=== PATIENT | female | born 1990 | race Caucasian/White ===

== ENCOUNTER 2016-07-26 17:57 | Emergency (ER) | payer OTHER ==
[~2016-07-26] VITALS: Wt 121.5 kg
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
--- NOTE | 2016-07-26 22:10 | RADRPT ---
PROCEDURE: XR left Shoulder. CLINICAL INDICATION: Trauma. Pain. TECHNIQUE: Three views of the left shoulder are available for review. COMPARISON: None available FINDINGS: No acute fracture or dislocation is seen. The glenohumeral joint is unremarkable. The acromioclavi cular joint is intact. The visualized portions of the left clavicle and upper left rib cage are unr emarkable. No radiopaque foreign body is identified. Bone mineralization is within normal limits. Soft tissues are unremarkable. IMPRESSION: 1. Unremarkable left shoulder x-ray series. 2. No acute fracture or dislocation is seen. RPTAT: HMVK .Kit Mccloud MD, Date Time Electronically viewed and signed by .Kit Mccloud MD, MD on 07/26/2016 22:10 .K/
--- NOTE | 2016-07-26 22:11 | RADRPT ---
PROCEDURE: Thoracic Spine. CLINICAL INDICATION: Pain TECHNIQUE: Three views of the thoracic spine are available for review. COMPARISON: None available FINDINGS: No fracture is identified. There is maintenance of height of the vertebral bodies. Alignment is m aintained. There is no spondylolisthesis. Bone mineralization is within normal limits. Soft tissu es are unremarkable. IMPRESSION: 1. No acute abnormality. RPTAT: HMVK .Kit Mccloud MD, MD Date Time Electronically viewed and signed by .Kit Mccloud MD, on 07/26/2016 22:11 .K/
[2016-07-26] MEDS ORDERED: IBUP-1542 PO (22:21)
[2016-07-26] MEDS ORDERED: CYCL5TAB PO (22:21)
[2016-07-26] MEDS ORDERED: HYDROCODONE/APAP (5/325) TAB PO ONE (22:30)
[2016-07-26 23:04] VITALS: BP 128/77; PULSE 69; RESP 18; TEMP 97.3
== END 2016-07-26 23:04 | disposition home or self-care (01) ==
LOC: FTE 17:57
DX: S43.402A Unspecified sprain of left shoulder joint, initial encounter (principal); S29.012A Strain of muscle and tendon of back wall of thorax, initial encounter; V49.40XA Driver injured in collision with unspecified motor vehicles in traffic accident, initial encounter
CPT/HCPCS: 72072; 73030; Z7502; Z7610

== ENCOUNTER 2016-09-24 01:52 | Inpatient (IN) | payer OTHER ==
[~2016-09-24] VITALS: Ht 167.6 cm; Wt 118.0 kg
[2016-09-24] VITALS (7 sets, daily range): BP systolic 105–113; BP diastolic 54–63; PULSE 78–90; RESP 18; TEMP 98.1; Ht 167.6 cm; Wt 118.0 kg
[~2016-09-24 01:52] MED LIST: CYCL5TAB PO; IBUP-1542 PO
[2016-09-24] MEDS ORDERED: SOD CHLORIDE 0.9% 1,000 ML IV STA (03:37)
[2016-09-24 04:18] LABS: ADD SCAN DIFF NO
[2016-09-24 04:33] LABS: ALBUMIN 3.6 g/dl (3.3-4.9)
[2016-09-24 04:34] LABS: POTASSIUM 3.4 mmol/L (3.5-5.1)
[2016-09-24 04:36] LABS: ALBUMIN/GLOBULIN RATIO 1.12; CREATININE 0.67 mg/dl (0.44-1.00); TOTAL PROTEIN 6.8 g/dl (6.1-8.1)
[2016-09-24 04:37] LABS: CALCIUM 8.3 mg/dl (8.4-10.2)
[2016-09-24 04:48] LABS: ABNORMAL IP MESSAGE 1; BASOPHILS % 0.4 % (0.0-2.0); EOSINOPHILS # 0.2 10^3/ul (0.0-0.5); EOSINOPHILS % 1.7 % (0.0-7.0); HEMATOCRIT 26.7 % (37.0-47.0); HEMOGLOBIN 7.7 g/dl (12.0-16.0); LYMPHOCYTES # 2.2 10^3/ul (0.8-2.9); LYMPHOCYTES % 24.4 % (15.0-51.0); MEAN CORPUSCULAR HEMOGLOBIN 22.4 pg (29.0-33.0); MEAN CORPUSCULAR HGB CONC 28.8 g/dl (32.0-37.0); MEAN CORPUSCULAR VOLUME 77.8 fl (82.0-101.0); MEAN PLATELET VOLUME 10.1 fl (7.4-10.4); MONOCYTE # 0.5 10^3/ul (0.3-0.9); NEUTROPHILS % 66.9 % (39.0-77.0); PLATELET COUNT 418 10^3/UL (140-415); RED BLOOD COUNT 3.43 10^6/ul (4.20-5.40); RED CELL DISTRIBUTION WIDTH 16.4 % (11.5-14.5)
[2016-09-24 05:21] LABS: ADD UMIC YES; URINE BILIRUBIN (Dip) NEGATIVE (NEGATIVE); URINE BLOOD (Dip) 3+ (NEGATIVE); URINE COLOR RED (YELLOW); URINE GLUCOSE (Dip) NEGATIVE (NEGATIVE); URINE KETONES (Dip) NEGATIVE (NEGATIVE); URINE LEUKOCYTE ESTERASE (Dip) NEGATIVE (NEGATIVE); URINE NITRITE (Dip) NEGATIVE (NEGATIVE); URINE TOTAL PROTEIN (Dip) 2+ (NEGATIVE); URINE UROBILINOGEN (Dip) 0.2 E.U./dL (0.1-1.0)
--- NOTE | 2016-09-24 05:24 | RADRPT ---
PROCEDURE: US OB. CLINICAL INDICATION: Vaginal bleeding in . TECHNIQUE: Transabdominal imaging of the uterus is available for review COMPARISON: None available FINDINGS: No intrauterine is identified. The uterus is enlarged and heterogeneous measuring 14.1 x 14.2 x 8.9 cm. There is a large fundal fibroid measuring 9 cm in diameter. The right ovary measures 3.4 x 2.4 x 3.2 cm and the left ovary measures 3.5 x 2.1 x 2.7 cm. No adnexal mass is identified. Small free fluid is noted within the pelvis. IMPRESSION: Evaluation is limited secondary to large uterine fibroids measuring up to 9 cm in diameter. No intr auterine identified. There are no adnexal masses. Endovaginal ultrasound would be useful for further evaluation. Correlation with serial beta HCGs and repeat pelvic ultrasound as clinicall y indicated, is recommended, as ectopic is not excluded on this examination. RPTAT: HH .Cary Peng MD, MD Date Time Electronically viewed and signed by .Cary Peng MD, on 09/24/2016 05:24 .G/
[2016-09-24 05:50] LABS: MUCUS,URINE MODERATE; SQUAMOUS EPITHELIAL CELL,UR FEW; URINE RBCS >200 /HPF (0)
--- NOTE | 2016-09-24 05:52 | ERA ---
ER Documentation Chief Complaint Date/Time DATE: 09/24/16 TIME: 05:46 Chief Complaint Vaginal bleed X2 days Heavy per pt. Sx Fibroids Removal HPI 26-year-old woman presents with 2 syncopal episodes and recent dizziness. She began having vaginal bleeding about a week ago but 2 days ago became very heavy she is used multiple pads per day. She had one syncopal episode outside while in the emergency department waiting room. She denies head or neck injury, no fevers or chills, no vomiting or diarrhea, no headache or blurry vision. Patient does have a history of uterine fibroids although denies previous heavy bleeding. She has had one miscarriage. ROS All systems reviewed and are negative except as per history of present illness. Medications Home Meds Active Scripts Cyclobenzaprine Hcl* (Cyclobenzaprine Hcl*) 5 Mg Tablet, 5 MG PO Q8H Y for PAIN , #15 TAB Prov:SHAYNE MARIA PA-C 07/26/16 Ibuprofen* (Motrin*) 600 Mg Tab, 600 MG PO Q6, #30 TAB Prov:SHAYNE MARIA PA-C 07/26/16 Allergies Allergies: Coded Allergies: No Known Allergy (Unverified , 07/26/16) PMhx/Soc Obesity, uterine fibroids, possible PCOS History of Surgery: No Anesthesia Reaction: No Hx Neurological Disorder: No Hx Respiratory Disorders: No Hx Cardiac Disorders: No Hx Psychiatric Problems: No Hx Miscellaneous Medical Probl: Yes (FIBROIDS , OVARIAN CYST REMOVAL) Hx Alcohol Use: No Hx Substance Use: No Hx Tobacco Use: No Smoking Status: Never smoker FmHx Family History: No diabetes Physical Exam Vitals Vital Signs Date Time Temp Pulse Resp B/P Pulse Ox O2 Delivery O2 Flow Rate FiO2 09/24/16 02:51 97.7 108 18 127/71 100 Physical Exam GENERAL: Well-developed, well-nourished, appears dehydrated HEENT: Pale conjunctiva, no cervical spine tenderness or step-off deformities, no goiter, no jaundice or icterus, extraocular movements intact without pain. No submandibular induration, and no pharyngeal erythema NEURO: Alert and oriented 3, cranial nerves II through XII intact bilaterally, pupils equal round reactive to light, no focal deficits or facial asymmetry, sensation intact distally Strength 5/5 in upper and lower extremities bilaterally CARDIAC: Tachycardic and regular, no murmurs rubs or gallops LUNGS: Clear bilaterally no wheezing crackles or stridor ABDOMEN: Soft nontender, no guarding, no rigidity, no rebound, no psoas sign no obturator sign. Normoactive bowel sounds SKIN: Warm and dry to touch, no abrasions, contusions, or hematomas, no lacerations, no ecchymosis, no target lesions, and without ulcers EXTREMITIES: No clubbing cyanosis or edema, calves are bilaterally symmetrical, no Homans sign, no popliteal cord sign. Distal pulses equal and bilateral PSYCH: Normal affect without agitation or irritability Result Diagram: 09/24/1635609/24/167 Results 24 hrs Laboratory Tests Test 09/24/16 03:57 Alanine Aminotransferase (ALT/SGPT) 26IU/L Albumin 3.6g/dl Albumin/Globulin Ratio 1.12 Alkaline Phosphatase 83IU/L Anion Gap 15 Aspartate Amino Transf (AST/SGOT) 16IU/L Basophils # 0.010^3/ul Basophils % 0.4% Beta HCG, Quantitative < 2.4mIU/ml Blood Urea Nitrogen 9mg/dl Calcium Level 8.3mg/dl Carbon Dioxide Level 24mmol/L Chloride Level 105mmol/L Creatinine 0.67mg/dl Direct Bilirubin 0.00mg/dl Eosinophils # 0.210^3/ul Eosinophils % 1.7% Globulin 3.20g/dl Glucose Level 122mg/dl Hematocrit 26.7% Hemoglobin 7.7g/dl Indirect Bilirubin 0.0mg/dl Lymphocytes # 2.210^3/ul Lymphocytes % 24.4% Mean Corpuscular Hemoglobin 22.4pg Mean Corpuscular Hemoglobin Concent 28.8g/dl Mean Corpuscular Volume 77.8fl Mean Platelet Volume 10.1fl Monocytes # 0.510^3/ul Monocytes % 6.0% Neutrophils # 6.010^3/ul Neutrophils % 66.9% Nucleated Red Blood Cells # 0.010^3/ul Nucleated Red Blood Cells % 0.0/100WBC Platelet Count 61734^3/UL Potassium Level 3.4mmol/L Red Blood Count 3.4310^6/ul Red Cell Distribution Width 16.4% Sodium Level 141mmol/L Total Bilirubin 0.0mg/dl Total Protein 6.8g/dl White Blood Count 9.010^3/ul Current Medications Medications (Trade) Dose Ordered Sig/Samuel Route PRN Reason Start Time Stop Time Status Last Admin Dose Admin Sodium Chloride (NS) 1,000 ml @ 2,000 mls/hr Q30M STAT IV 09/24/16 03:37 09/24/16 04:06 DC 09/24/16 04:15 Procedures/MDM IV line was established patient was placed on monitoring and evaluation advisor rhythm strip revealed a tachycardia at about 110 bpm with upright P and T waves. Patient was afebrile. I administered 1 L normal saline intravenously. test was negative. CBC revealed anemia with a hemoglobin of 7.7. Electrolytes were unremarkable, liver function tests are normal. Urine analysis was negative for infection. Nonobstetric pelvic ultrasound was performed revealing large uterine fibroids. Please refer to radiologist dictation for full report. I ordered transfusion of 2 units PRBCs IV over 4 hours for symptomatic anemia. Patient will be admitted to telemetry setting for continued medical and gynecologic management as well as transfusion. EKG performed, read by me revealed a sinus tachycardia at 100 bpm, normal axis, narrow QRS complexes, no concerning ST elevations or depressions noted. Departure Diagnosis: Primary Impression: Syncope Qualified Code: R55 - Syncope, unspecified syncope type Additional Impressions: Symptomatic anemia Uterine fibroid Qualified Code: D25.1 - Intramural leiomyoma of uterus Condition: GREGORIA Gallagher MD Sep 24, 2016 05:52
[2016-09-24] MEDS ORDERED: CYCLOBENZAPRINE 10 MG TAB PO PRN (06:00)
[2016-09-24] MEDS ORDERED: NA PHOSPHATE/BIPHOS 133 ML ENEMA PR PRN (06:00)
[2016-09-24] MEDS ORDERED: DOCUSATE SODIUM 100 MG CAP PO PRN (06:00)
[2016-09-24] MEDS ORDERED: HYDROCODONE/APAP (5/325) TAB PO PRN (06:00)
[2016-09-24] MEDS ORDERED: NITROGLYCERIN (SL) 0.4 MG TAB SL PRN (06:00)
[2016-09-24] MEDS ORDERED: MAGNESIUM HYDROXIDE 30ML CUP PO PRN (06:00)
[2016-09-24] MEDS ORDERED: morphine 2 MG INJ IV PRN (06:00)
[2016-09-24] MEDS ORDERED: hydrALAzine 20 MG INJ IV PRN (06:00)
[2016-09-24] MEDS ORDERED: NACL 0.9% 3 ML SYG IV SCH (06:00)
[2016-09-24] MEDS ORDERED: ONDANSETRON 4 MG INJ IV PRN (06:00)
[2016-09-24] MEDS ORDERED: LORAZEPAM 2 MG INJ IV PRN (06:00)
[2016-09-24] MEDS ORDERED: ALBUTEROL/IPRATROPIUM (NEB) 3 ML AMP HHN PRN (06:00)
[2016-09-24] MEDS ORDERED: ACETAMINOPHEN 325 MG TAB PO PRN (06:00)
[2016-09-24] MEDS ORDERED: PANTOPRAZOLE (EC) 40 MG TAB PO SCH (06:00)
[2016-09-24] MEDS ORDERED: SOD FERRIC GLUC COMPLX 125 MG in SOD CHLORIDE 0.9% 100 ML IVPB ONE (06:30)
--- NOTE | 2016-09-24 07:15 | HP ---
DATE OF ADMISSION: 09/24/2016 IDENTIFICATION: This is a 26-year-old female. CHIEF COMPLAINT: Weakness and irregular periods. HISTORY OF PRESENT ILLNESS: A 26-year-old female with a past medical history of obesity, occasional migraines and irregular periods, who complains of dizziness and weakness symptoms. She has also no ticed some possible syncopal events x2 occurring. She has also been having irregular periods and va ginal bleeding, which became very heavy 2 days ago. She has had to use multiple pads per day. She decided to come to the ER and had 1 mild syncopal event outside ER, but no head or neck pain, no fev ers or chills, no upper GI bleeding, no vomiting or diarrhea, no lower GI bleeding, no chest pain or shortness of breath. When she came into the ER today she had the finding of a hemoglobin of 7.7. She says back on August 13 she was in [place], where she had fibroid removal and 10 fibroids were removed at that time, but she was told that the [facility] doctors who performed the surgery there could not remove all the fibroids, is what she told me. Also when she came into the ER today she had kayy ging studies performed, specifically a pelvic ultrasound, that did show large uterine fibroids measu ring up to 9 cm in diameter and no intrauterine identified. The patient states that she h as been on Depo-Provera in the past. She last took it in April, and was supposed to take it again this July, but was not able to take it at that time, and she has had heavy periods for the last 5 or 6 years overall. PAST MEDICAL HISTORY: As stated above. ALLERGIES: NO KNOWN DRUG ALLERGIES. HOME MEDICATIONS: 1. She takes cyclobenzaprine 5 mg q.8 hours p.r.n. 2. Ibuprofen 600 mg q.6h. PAST SURGICAL HISTORY: In addition to the fibroid surgery in [place] in August of 2016, she had ov camilo cyst removal in 2014. SOCIAL HISTORY: She smokes a few cigarettes per year. She is a social drinker. Denies any IV drug abuse. FAMILY HISTORY: Mother has hypertension and prediabetes. PHYSICAL EXAMINATION: VITAL SIGNS: Today T-max 97.7, pulse 108, respirations 18, blood pressure 127/71, saturating 100% o n room air. GENERAL: The patient is lying in bed. Family members are at the bedside. In no acute distress. HEENT: Pupils are equal, round, and react to light. Extraocular muscles intact. NECK: Supple. No thyromegaly. LUNGS: Clear to auscultation bilaterally. CARDIOVASCULAR: S1, S2 heard. No rubs or gallops. ABDOMEN: Soft, nontender, nondistended. Normal bowel sounds. No rebound or guarding. MUSCULOSKELETAL: No lower extremity edema bilaterally. NEUROLOGIC: No focal deficits. LABORATORY: WBC 9.0, hemoglobin 7.7, hematocrit 26.7, platelets 418. Comprehensive metabolic panel is normal except that potassium is a little low at 3.4. UA shows 3+ blood, but negative nitrites, negative leukocyte esterase. Again, the pelvic ultrasound, the results as mentioned above. ASSESSMENT AND PLAN: A 26-year-old female with dizziness, weakness, syncope, anemia with heavy yulissa ods, and a history of fibroids. 1. Weakness and anemia. Admit the patient to the med/surg floor, give her PRBC transfusion. Will g et an [facility] consult, given her fibroid findings. Will put her on iron tablets as well. She said sh e takes them at home. Will give her [place] and morphine p.r.n. for pain as well. Consider medi cation as well. Check TSH, A1c, and lipid panel. 2. Gastrointestinal prophylaxis. Will put her on a proton pump inhibitor. 3. Deep venous thrombosis prophylaxis. Sequential compression devices. Dictated By: MAY LAWSON Conf#: [id number] DID#: [id number]
[2016-09-24] MEDS: SOD CHLORIDE 0.9% 1,000 ML IV SCH ×2 (10:19→15:52)
--- NOTE | 2016-09-24 10:19 | PDOCDIS ---
Discharge Instructions CONDITION Patient Condition: Good HOME CARE INSTRUCTIONS: Diet Instructions: Regular ACTIVITY: Activity Restrictions: Slowly Increase Activity Rest between Activity Avoid heavy lifting FOLLOW UP/APPOINTMENTS Appointments Follow up with DIABETES TERRITORY MANAGER as out-pt LAMINE ECHEVERRIA MD Sep 24, 2016 10:18
[2016-09-24] MEDS ORDERED: FAMO20TA18 PO (10:21)
[2016-09-24] MEDS ORDERED: FER325 PO (10:21)
[2016-09-24] MEDS ORDERED: ASC500 PO (10:21)
[2016-09-24] MEDS ORDERED: DIPHENHYDRAMINE 50 MG INJ IV ONE (11:00)
[2016-09-24] MEDS ORDERED: DIPHENHYDRAMINE 25 MG CAP PO PRN (11:00)
--- NOTE | 2016-09-24 11:07 | DS ---
DATE OF ADMISSION: 09/24/2016 DATE OF DISCHARGE: 09/24/2016 INTERIOR DESIGN CONSULTANT: Dr. Jesus Alberto Coronel, FOIL OPERATOR DIAGNOSES: 1. Generalized weakness likely secondary to anemia. 2. Anemia secondary to menorrhagia. 3. The patient instructed to follow up with her FOIL OPERATOR as outpatient. HOSPITAL COURSE: This is a 26-year-old female with past medical history of obesity, occasional migr aines, irregular periods, menorrhagia, who has been complaining of dizziness, weakness symptoms. Th e patient has noticed some possible syncopal event secondary to lightheadedness and heavy menstrual bleeding. The patient has been having irregular periods and heavy vaginal bleeds for the past 2 day s and has been using multiple pads per day. The patient presented to the ER on 09/23/2016. Her hem oglobin was found to be 7.7. The patient on August 13 was in [place] where she had a fibroid remove d and she was told to follow up with FOIL OPERATOR in the [facility], although the patient has not follo wed up with her FOIL OPERATOR since she has returned from [place]. The patient in the ER had a pelvic ultra sound which did show some large uterine fibroid measuring to 9 cm with no intrauterine emory ntified. Patient also stated that she has been on Depo-Provera in the past, the last one she took i n April and was supposed to take again in July, although she has not followed up with her OB/GY N, as stated above. Upon arrival to emergency room, patient was found to have hemoglobin of 7.7, he matocrit 26.7, MCV 77.8. FOIL OPERATOR was consulted. Patient was typed and screened and transfused 2 uni ts of packed red blood cells. At this time, waiting for FOIL OPERATOR evaluation and the patient will be p laced on proper medication prior to discharge. Patient also has been instructed to follow up with h er own FOIL OPERATOR as outpatient for further evaluation and possible surgical intervention. Vitals are s table with temperature 97.9, pulse 78, respiration 18, blood pressure 105/54 and 127/71, oxygen 98% in room air. Waiting for FOIL OPERATOR evaluation prior to discharge. The patient will be discharged home if cleared as per FOIL OPERATOR standpoint and FREELANCE PHOTOGRAPHER medications as per FREELANCE PHOTOGRAPHER recommendation. Dictated By: LAMINE JUAREZ/NTS Conf#: [id number] DID#: [id number]
--- NOTE | 2016-09-24 15:39 | QN ---
Documentation Comment Health Tech Consult: 26 yo a known case of Fibroid surgery,Had a laparatomy myomoctomy and according to patient most of the fibromas were removed but still few left VS stable Gen NAD Abd soft nT ND A pfanestiel incision noticed Genitalia 2-3 clots in vaginal vault no active bleeding --->Blood transfusion --->repeat ultrasound --->Megace 40 mg po daily --->follow up as an outpatient with her Rn Nursery --->Needs to retrieve the pathology of the myomas and if not retrievable ,A D&C& Hysteroscopy as out patient is recommended --->If there is any new symptoms ,please let the Health Tech team know Thank you for consulting with me., SHARON TOVAR M.D. Sep 24, 2016 15:39
[2016-09-24] MEDS ORDERED: MEGE40TA PO (16:39)
[2016-09-24 17:57] LABS: HEMATOCRIT 28.1 % (37.0-47.0); HEMOGLOBIN 8.3 g/dl (12.0-16.0)
[2016-09-24 18:13] LABS: IRON 69 ug/dl (35-150)
[2016-09-24 18:22] LABS: TOTAL IRON BINDING CAPACITY 286 ug/dl (241-421)
[2016-09-24] MEDS ORDERED: ROCURONIUM 50 MG INJ ONE ×3 (18:48→21:17)
[2016-09-24] MEDS ORDERED: MIDAZOLAM 1 MG/ML 2 ML INJ ONE (18:48)
[2016-09-24] MEDS ORDERED: ONDANSETRON 4 MG INJ ONE ×2 (18:48→19:02)
[2016-09-24] MEDS ORDERED: METOCLOPRAMIDE 10 MG INJ ONE (18:48)
[2016-09-24] MEDS ORDERED: PROPOFOL 20 ML ONE (18:48)
[2016-09-24] MEDS ORDERED: FAMOTIDINE 20 MG INJ ONE (19:02)
[2016-09-24] MEDS ORDERED: METOPROLOL 5 MG INJ ONE (19:21)
[2016-09-24] MEDS ORDERED: HYDROmorphONE 2 MG/ML SYG ONE ×2 (20:10→23:18)
[2016-09-24] MEDS ORDERED: FUROSEMIDE 20 MG INJ ONE (22:05)
[2016-09-24] MEDS ORDERED: ROPIVACAINE 0.5 % 30 ML VIAL ONE (22:47)
[2016-09-24] MEDS ORDERED: LABETALOL HCL 20MG INJ ONE (23:07)
[2016-09-25] MEDS ORDERED: INFLUENZA VIRUS VACCINE 0.5 ML (DISPENSING) IM* ONE (09:00)
== END 2016-09-24 18:45 | disposition home or self-care (01) | DRG 812 ==
LOC: E/R 01:52 → TEL 05:53
PROVIDERS: ADMIT Hospitalist; ATTEND Hospitalist
PROC: 30233N1 Transfusion of Nonautologous Red Blood Cells into Peripheral Vein, Percutaneous Approach (ICD-10-PCS; principal; 2016-09-24)
DX: D50.0 Iron deficiency anemia secondary to blood loss (chronic) (principal); D25.1 Intramural leiomyoma of uterus; N92.0 Excessive and frequent menstruation with regular cycle
CPT/HCPCS: 36415; 36430; 76801; 76817; 80053; 81001; 81003; 83540; 84439; 84702; 85014; 85018; 85025; 86850; 86900; 86901; 86920; 93005; J1940; J1170; J1200; J2250; J2405; J2765; J2795; J2916; J7030; P9016